=== PATIENT | female | born 1990 | race Caucasian/White ===

== ENCOUNTER 2020-07-07 07:12 | Inpatient (IN) | payer BC, OTHER ==
[~2020-07-07 07:12] MED LIST: Bupivacaine 0.25% 10 ML SDV ONE
[2020-07-07] MEDS ORDERED: Sodium Chloride 0.9% 10 ML Syringe FLUSH PRN (07:40)
[2020-07-07] MEDS ORDERED: Ondansetron 4 MG/2 ML SDV IVPUSH PRN (07:40)
[2020-07-07] MEDS ORDERED: Nalbuphine 10 MG/1 ML Vial IVPUSH PRN (07:40)
[2020-07-07] MEDS ORDERED: Oxytocin/Lactated Ringers 10 UNIT/1,000 ML BAG IV SCH ×2 (07:45)
[2020-07-07] MEDS ORDERED: Lactated Ringers 1,000 ML ONE (07:50)
[2020-07-07] MEDS ORDERED: Ammonia Inhalant Amp ONE ×2 (08:32→13:35)
[2020-07-07] MEDS: Lactated Ringers 1,000 ML IV SCH ×2 (08:50→13:43)
--- NOTE | 2020-07-07 09:22 | PCM.LDHP ---
L&D History of Present Illness - General Date of Service: 07/07/20 Admit Problem/Dx: Patient Status Order with Admit Dx/Problem 07/07/20 07:43 Patient Status [ADT] Routine Admission Diagnosis/Problem Admission Diagnosis/Problem 07/07/20 09:11 Alexandra is a 30-year-old 4 para 2-0-1-2 white female presently at 40-2/7 weeks gestational age with an TRAY of 07/12/2020 noted on the a.m. of 07/07/2020 for induction of labor. Source of Information: Patient History Limitations: Reports: No Limitations - History of Present Illness Introduction:: Alexandra is a 30-year-old 4 para 2-0-1-2 white female presently at 40-2/7 weeks gestational age with an TRAY of 07/12/2020 noted on the a.m. of 07/07/2020 for induction of labor. Duration clinic and again this a.m. her cervix is 1 to 2 cm, 80% effaced, -3 station, cephalic presentation, soft, mid position. Plan is for Pitocin induction of labor followed by AROM augmentation. The procedure, risk, benefits all discussed with patient she appears understand and wishes to proceed. 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 TRAY is 07/12/2020 as based upon a certain last menstrual period starting 10/06/2019 and supported by multiple ultrasounds during the course of the . Patient had menarche at approximately age 11. Cycles q. 30 days. Duration 5 days. LMP relatively certain on 10/06/2019. Patient denies any abnormal Pap smears and denies any STIs in the past. Past obstetrical history includes the followin. Spontaneous vaginal delivery 05/02/2009 at 38 weeks gestational age after 12 hours of labor. 7 pound 1 ounce male . Epidural used for analgesia. Child's name is Nikita. 2. Spontaneous in April 2015had D&C for retained products of conception 3. Spontaneous vaginal delivery on 05/01/2016 at 40 weeks gestational age. 8 pounds 0 ouncesfemale infantepidural used. Child's name is Mike. course: Alexandra was seen relatively early in the with first ultrasound being done at 11-4/7 weeks gestational age on 12/26/2019. She is seen on a regular basis throughout the . She had normal vital signs. Appropriate fundal height growth. Weight gain was from a pregravid weight of 183.4 pounds to a weight of 219 pounds. Group B strep negative. She desires epidural in labor. Has a history of labor with her first . [place] depression screen score 02/27/2020 was 0/30. Initially had a low-lying placenta. That resolved. She had some increased amniotic fluid in . She had a negative prequel noninvasive screen with negative results for trisomy 21, 18 and 13. [facility] was felt to be normal. labs: Blood is a positive with a negative antibody screen. First hemoglobin was 12.4 g/dL and platelets were 265,000. She is rubella immune. RPR is nonreactive. Urine culture was negative as was hepatitis B surface antigen and HIV assays. Chlamydia and gonorrhea assays were both negative. Second trimester labs showed a hemoglobin of 12.5 and platelets 239,000. 1 hour GTT was normal at 107. At 06/12/2020 her hemoglobin was 13.6 g/dL and platelets were 196,000. Group B strep screen was negative. Allergies: Seasonal allergies only Medications: 1. vitamins Past medical history: 1. x2 2. Spontaneous miscarriage with D&C for retained products of conception 3. History of anxiety not on any medications. 4. Infertility using Clomid to achieve second and third pregnancies. 5. History of labor with first Past surgical history: 1. Breast augmentation February 2019 2. D&C 2014 3. Tonsillectomy 1993 4. Oral surgery 2013 Family history: Mother is secondary to breast cancer. Father is alive and well. Maternal grandmother is alive and well. Maternal grandfather is secondary to Parkinson's disease. Paternal grandmother is secondary to lung cancerwas a smoker. Paternal grandfather is secondary to lung cancerwas a smoker. There is no family history of cancers otherwise, bleeding or blood clotting disorders, anesthesia related issues or related problems. Social history: Patient is . is Gibson. 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 She is a college graduate with graduate agree also. She does not use any significant also alcohol, drugs or tobacco. She lives in [place], [place]. Review of systems: In general patient has no complaints. Baby is active. Skin: Negative Lungs: No infectious symptoms or shortness of breath Cardiovascular: No chest pain or exercise intolerance Breasts: No lumps, changes in size, pain, dimpling, discharge or axillary or supraclavicular concerns. GI: Negative : Body habitus changes associated with . Musculoskeletal: Negative Neurological: Negative Physical exam: In general the patient is well-developed, well-nourished, pleasant female of stated age in no acute distress. On last evaluation clinic patient's blood pressure was 118/74. Weight was 219 pounds with a pregravid weight of 183.4 pounds. Pregravid body mass index was 24.4. Height is 5 feet 11 inches. heart rate was 145 bpm. Skin is warm dry without lesions. HEENT, neck and back within normal limits. Lungs are clear with good breath sounds in all lung marie. Cardiovascular exam shows regular and rhythm without murmurs. Breast exam done at the beginning of the /first visit was found to be normal. Patient has prosthesis bilaterally. She plans to breast- feed. Abdomen is gravid. Fundal height on last evaluation was 39 cm. Baby in vertex presentation by All maneuver. Genital per digital exam is as outlined above. Extremities and neurological exam are grossly within normal limits. - Related Data Allergies/Adverse Reactions: Allergies Allergy/AdvReac Type Severity Reaction Status Date / Time No Known Allergies Allergy Verified 07/07/20 07:23 Home Medications: Home Meds Acetaminophen/oxyCODONE [Percocet 325-5 MG] 2 tab PO Q4H PRN #20 tablet 05/03/16 [Rx] Ibuprofen [IJD: Ibuprofen] 600 mg PO Q4H PRN #30 tablet 05/03/16 [Rx] Past Medical History - Past Health History Medical/Surgical History: Denies Medical/Surgical History DIRECTOR OF GOLF History: Reports: Spontaneous Other OB/BYN History: SAB with D&C 2014 Psychiatric History: Reports: Anxiety - Past Surgical History HEENT Surgical History: Reports: Oral Surgery, Tonsillectomy, Other (See Below) Social & Family History - Family History Family Medical History: No Pertinent Family History - Caffeine Use Caffeine Use: Reports: None H&P Review of Systems - Review of Systems: Review Of Systems: See Below L&D Exam - Exam Exam: See Below - Vital Signs Weight: 100.244 kg - Patient Data Lab Results Last 24 hrs: Laboratory Results - last 24 hr 07/07/20 07/07/20 Range/Units 07:30 08:25 WBC 9.72 (3.98-10.04) K/mm3 RBC 4.43 (3.98-5.22) M/mm3 Hgb 13.1 (11.2-15.7) gm/dl Hct 37.6 (34.1-44.9) % MCV 84.9 (79.4-94.8) fl MCH 29.6 (25.6-32.2) pg MCHC 34.8 (32.2-35.5) g/dl RDW Std Deviation 41.4 (36.4-46.3) fL Plt Count 180 L (182-369) K/mm3 MPV 8.4 L (9.4-12.3) fl Neut % (Auto) 70.6 (34.0-71.1) % Lymph % (Auto) 20.7 (19.3-51.7) % [place] % (Auto) 8.3 (4.7-12.5) % Eos % (Auto) 0.2 L (0.7-5.8) Baso % (Auto) 0.2 (0.1-1.2) % Neut # (Auto) 6.86 H (1.56-6.13) K/mm3 Lymph # (Auto) 2.01 (1.18-3.74) K/mm3 [place] # (Auto) 0.81 H (0.24-0.36) K/mm3 Eos # (Auto) 0.02 L (0.04-0.36) K/mm3 Baso # (Auto) 0.02 (0.01-0.08) K/mm3 SARS-CoV-2 RNA (GALINDO) Negative (NEGATIVE) Result Diagrams: 07/07/20 08:25 Problem List Initiated/Reviewed/Updated: Yes Orders Last 24hrs: Active Orders 24 hr Category Date Time Status Patient Status [ADT] Routine ADT 07/07/20 07:43 Active Activity as Tolerated [RC] PFP Care 07/07/20 07:43 Active Communication Order [RC] ASDIRECTED Care 07/07/20 07:43 Active Heart Tones [RC] ASDIRECTED Care 07/07/20 07:43 Active Non Stress Test [RC] PER UNIT ROUTINE Care 07/07/20 07:43 Active Notify Provider [RC] PFP Care 07/07/20 07:43 Active Notify Provider [RC] PRN Care 07/07/20 07:43 Active Peripheral IV Care [RC] . DIRECTED Care 07/07/20 07:43 Active Pump Management, Intrathecal [RC] ASDIRECTED Care 07/07/20 07:44 Active Vital Signs [RC] PER UNIT ROUTINE Care 07/07/20 07:43 Active Regular Diet [DIET] Diet 07/07/20 Lunch Active RAPID PLASMA REAGIN,RPR [CHEM] Routine Lab 07/07/20 08:25 Received Lactated Ringers [Ringers, Lactated] 1,000 ml Med 07/07/20 07:45 Active IV ASDIRECTED Nalbuphine [Nubain] Med 07/07/20 07:40 Active 10 mg IVPUSH Q2H PRN Ondansetron [Zofran] Med 07/07/20 07:40 Active 4 mg IVPUSH Q4H PRN Oxytocin/Lactated Ringers [Pitocin in LR 10 Units/1,000 Med 07/07/20 07:45 Active ML] 10 unit in 1,000 ml IV .CONTINUOUS Oxytocin/Lactated Ringers [Pitocin in LR 10 Units/1,000 Med 07/07/20 07:45 Active ML] 10 unit in 1,000 ml IV TITRATE Sodium Chloride 0.9% [Saline Flush] Med 07/07/20 07:40 Active 10 ml FLUSH ASDIRECTED PRN Electronic Heart Tones Ext w TOCO [WOMSER] Oth 07/07/20 07:43 Ordered Routine Electronic Heart Tones Internal [WOMSER] Per Unit Oth 07/07/20 07:43 Ordered Routine Peripheral IV Insertion Adult [OM.PC] Routine Oth 07/07/20 07:43 Ordered Resuscitation Status Routine Resus Stat 07/07/20 07:40 Ordered Medication Orders Oxytocin/Lactated Ringer's (Pitocin In Lr 10 Units/1,000 Ml) 10 unit in 1,000 mls @ 500 mls/hr IV .CONTINUOUS CHRIS Oxytocin/Lactated Ringer's (Pitocin In Lr 10 Units/1,000 Ml) 10 unit in 1,000 mls @ 12 mls/hr IV TITRATE CHRIS; Protocol Last Admin: 07/07/20 08:50 Dose: 2 munits/min, 12 mls/hr Documented by: JAY Lactated Ringer's (Ringers, Lactated) 1,000 mls @ 100 mls/hr IV ASDIRECTED CHRIS Last Admin: 07/07/20 08:50 Dose: 100 mls/hr Documented by: JAY Nalbuphine HCl (Nubain) 10 mg IVPUSH Q2H PRN PRN Reason: Pain Ondansetron HCl (Zofran) 4 mg IVPUSH Q4H PRN PRN Reason: Nausea/Vomiting Sodium Chloride (Saline Flush) 10 ml FLUSH ASDIRECTED PRN PRN Reason: Keep Vein Open Assessment/Plan Comment:: 1. 39-2/7-week intrauterine admitted for induction of labor. 2. Risk factors: Minimal 3. History of mild hydramnios and earlier pregnancyPrequel noninvasive prenat al screen, MFM evaluation both unremarkable with findings felt to be. 4. Group B strep screen negative. 5. Patient desires epidural in labor and delivery 6. Patient is rubella immune. She has had her Tdap on 06/04/2020. Plan: 1. Pitocin induction of labor with AROM augmentation when possible. 2. May consider balloon catheter placement for cervical ripening when possible. 3. Epidural per patient desire 4. Support breast-feeding decision 5. Routine labor care 6. Initial laboratory evaluation upon admission: Covid19 testing, CBC/platelet count, RPR per protocol.
[2020-07-07] MEDS ORDERED: fentaNYL 100 MCG/2 ML SDV EPIDUR PRN (12:45)
[2020-07-07] MEDS ORDERED: Bupivacaine/fentaNYL/NS 100 ML Bag EPIDUR PRN (12:45)
[2020-07-07] MEDS ORDERED: ePHEDrine 50 MG/ML SDV IVPUSH PRN (12:45)
[2020-07-07] MEDS ORDERED: diphenhydrAMINE 50 MG/ML SDV IVPUSH PRN (12:45)
--- NOTE | 2020-07-07 12:45 | PCM.PREANE ---
Preanesthetic Assessment - Procedure Proposed Procedure: tracy - Anesthesia/Transfusion/Family Hx Anesthesia History: Prior Anesthesia Without Reaction Family History of Anesthesia Reaction: No Transfusion History: No Prior Transfusion(s) Type of Transfusion Reactions: Reports: Unknown - Review of Systems General: No Symptoms Pulmonary: No Symptoms Cardiovascular: No Symptoms Gastrointestinal: No Symptoms Neurological: No Symptoms Other: Reports: None - Physical Assessment Vital Signs: Last Vital Signs Temp 97.2 F 07/07/20 07:43 Pulse Resp 16 07/07/20 07:43 BP 106/59 L 07/07/20 07:43 Pulse Ox 99 07/07/20 07:43 Height: 5 ft 11 in Weight: 100.244 kg ASA Class: 2 Mental Status: Alert & Oriented x3 Airway Class: Mallampati = 1 Dentition: Reports: Normal Dentition Thyro-Mental Finger Breadths: 3 Mouth Opening Finger Breadths: 3 ROM/Head Extension: Full Lungs: Clear to Auscultation, Normal Respiratory Effort Cardiovascular: Regular Rate, Regular Rhythm - Lab Values: Laboratory Last Values WBC 9.72 K/mm3 (3.98-10.04) 07/07/20 08:25 RBC 4.43 M/mm3 (3.98-5.22) 07/07/20 08:25 Hgb 13.1 gm/dl (11.2-15.7) 07/07/20 08:25 Hct 37.6 % (34.1-44.9) 07/07/20 08:25 MCV 84.9 fl (79.4-94.8) 07/07/20 08:25 MCH 29.6 pg (25.6-32.2) 07/07/20 08:25 MCHC 34.8 g/dl (32.2-35.5) 07/07/20 08:25 RDW Std Deviation 41.4 fL (36.4-46.3) 07/07/20 08:25 Plt Count 180 K/mm3 (182-369) L 07/07/20 08:25 MPV 8.4 fl (9.4-12.3) L 07/07/20 08:25 Neut % (Auto) 70.6 % (34.0-71.1) 07/07/20 08:25 Lymph % (Auto) 20.7 % (19.3-51.7) 07/07/20 08:25 [place] % (Auto) 8.3 % (4.7-12.5) 07/07/20 08:25 Eos % (Auto) 0.2 (0.7-5.8) L 07/07/20 08:25 Baso % (Auto) 0.2 % (0.1-1.2) 07/07/20 08:25 Neut # (Auto) 6.86 K/mm3 (1.56-6.13) H 07/07/20 08:25 Lymph # (Auto) 2.01 K/mm3 (1.18-3.74) 07/07/20 08:25 [place] # (Auto) 0.81 K/mm3 (0.24-0.36) H 07/07/20 08:25 Eos # (Auto) 0.02 K/mm3 (0.04-0.36) L 07/07/20 08:25 Baso # (Auto) 0.02 K/mm3 (0.01-0.08) 07/07/20 08:25 SARS-CoV-2 RNA (GALINDO) Negative (NEGATIVE) 07/07/20 07:30 - Allergies Allergies/Adverse Reactions: Allergies Allergy/AdvReac Type Severity Reaction Status Date / Time No Known Allergies Allergy Verified 07/07/20 07:23 - Blood Blood Available: No - Acknowledgements Anesthesia Type Planned: Epidural Pt an Appropriate Candidate for the Planned Anesthesia: Yes Alternatives and Risks of Anesthesia Discussed w Pt/Guardian: Yes Pt/Guardian Understands and Agrees with Anesthesia Plan: Yes PreAnesthesia Questionnaire - Past Health History Medical/Surgical History: Denies Medical/Surgical History Cardiovascular History: Reports: None Respiratory History: Reports: None Gastrointestinal History: Reports: None 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: , 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 Other OB/BYN History: SAB with D&C 2014 Psychiatric History: Reports: Anxiety Oncologic (Cancer) History: Reports: None - Past Surgical History HEENT Surgical History: Reports: Oral Surgery, Tonsillectomy, Other (See Below) Oncologic Surgical History: Reports: Other (See Below) (implants breasts) - SUBSTANCE USE Tobacco Use Status *Q: Never Tobacco User Tobacco Use Within Last Twelve Months: No Second Hand Smoke Exposure: No Days Per Week of Alcohol Use: 0 Recreational Drug Use History: No - HOME MEDS Home Medications: Home Meds Pnv No.95/Ferrous Fum/Folic AC [ Caplet] 1 tab PO DAILY 07/07/20 [Histor y] - CURRENT (IN HOUSE) MEDS Current Meds: Current Medications Oxytocin/Lactated Ringer's (Pitocin In Lr 10 Units/1,000 Ml) 10 unit in 1,000 mls @ 500 mls/hr IV .CONTINUOUS CHRIS Oxytocin/Lactated Ringer's (Pitocin In Lr 10 Units/1,000 Ml) 10 unit in 1,000 mls @ 12 mls/hr IV TITRATE CHRIS; Protocol Last Titration: 07/07/20 11:30 Dose: 14 munits/min, 84 mls/hr Documented by: Lactated Ringer's (Ringers, Lactated) 1,000 mls @ 100 mls/hr IV ASDIRECTED CHRIS Last Admin: 07/07/20 08:50 Dose: 100 mls/hr Documented by: Nalbuphine HCl (Nubain) 10 mg IVPUSH Q2H PRN PRN Reason: Pain Ondansetron HCl (Zofran) 4 mg IVPUSH Q4H PRN PRN Reason: Nausea/Vomiting Sodium Chloride (Saline Flush) 10 ml FLUSH ASDIRECTED PRN PRN Reason: Keep Vein Open Discontinued Medications Ammonia (Aromatic Spirit) (Ammonia Aromatic Inhalant) Confirm Administered Dose 1 ampule .ROUTE .STK-MED ONE Stop: 07/07/20 08:33 Lactated Ringer's (Ringers, Lactated) Confirm Administered Dose 1,000 mls @ as directed .ROUTE .STK-MED ONE Stop: 07/07/20 07:51 Last Admin: 07/07/20 11:39 Dose: Not Given Documented by:
[2020-07-07] MEDS ORDERED: Ammonia Inhalant Amp INH PRN (15:49)
--- NOTE | 2020-07-07 17:39 | PCM.SN.2 ---
- Free Text/Narrative Note: Delivery note: Alexandra is a 30-year-old 4 para 2-0-1-2 white female presently at 40-2/7 weeks gestational age with an TRAY of 07/12/2020 noted on the a.m. of 07/07/2020 for induction of labor. She underwent Pitocin induction of labor. Progressed slowly in labor to approximately 2 to 3 cm x 1500 hours. At that time artificial rupture membranes was placed on IUPC was undertaken. She had an epidural placed prior to AROM with good results. She progressed rapidly to complete cervical dilation by approximately 1700 hrs. She began pushing and with 2 contractions delivered the baby. She delivered the baby in a direct occiput anterior position. The infant was a male infant, Apgars of 9 and 9 with a weight of 3800 g (8 pounds 6 ounces). He delivered over an intact perineum at 1713 hrs. on 07/07/2020. It was 22.0 inches. Immediately after delivery Pitocin was increased to 500 cc/h to facilitate increase in uterine tone and decrease likelihood of bleeding. The baby was placed on mom's abdomen and was dried in usual fashion. Nose and mouth were bulb suction. Cord was allowed to pulsate for approximately 3 minutes at which time was clamped x2 and cut by the baby's father Gibson. The umbilical cord had 3 vessels within it. Blood is obtained per routine. The placenta delivered at 1717 hrs. in a Orozco fashion. It appeared to be intact and complete and was discarded per patient desire. Evaluation of the vagina perineum showed no evidence of lacerations. Estimated blood loss was 200 cc. Patient plans to breast-feed. Condition: Good.
[2020-07-07] MEDS ORDERED: Witch Hazel Medicated Pads 40/Jar TOP PRN (18:49)
[2020-07-07] MEDS ORDERED: Acetaminophen 325 MG Tab PO PRN (18:49)
[2020-07-07] MEDS ORDERED: Docusate Sodium 100 MG Cap PO PRN (18:49)
[2020-07-07] MEDS ORDERED: Benzocaine/Menthol 20%-0.5% Spray 56 GM Canister TOP PRN (18:49)
[2020-07-07] MEDS: Ibuprofen 600 MG Tab PO PRN (19:50)
[2020-07-08] MEDS: Ibuprofen 600 MG Tab PO PRN ×4 (00:29→16:51)
--- NOTE | 2020-07-08 10:04 | PCM.DCSUM1 ---
Discharge Summary - Hospital Course Free Text/Narrative:: Alexandra is a 30-year-old 4 para 3-0-1-3 white female presently at 40-2/7 weeks gestational age with an TRAY of 07/12/2020 noted on the a.m. of 07/07/2020 for induction of labor. She underwent Pitocin induction of labor. Progressed slowly in labor to approximately 2 to 3 cm x 1500 hours. At that time artificial rupture membranes was placed on IUPC was undertaken. She had an epidural placed prior to AROM with good results. She progressed rapidly to complete cervical dilation by approximately 1700 hrs. She began pushing and with 2 contractions delivered the baby. She delivered the baby in a direct occiput anterior position. The infant was a male infant, Apgars of 9 and 9 with a weight of 3800 g (8 pounds 6 ounces). He delivered over an intact perineum at 1713 hrs. on 07/07/2020. It was 22.0 inches. Immediately after delivery Pitocin was increased to 500 cc/h to facilitate increase in uterine tone and decrease likelihood of bleeding. The baby was placed on mom's abdomen and was dried in usual fashion. Nose and mouth were bulb suction. Cord was allowed to pulsate for approximately 3 minutes at which time was clamped x2 and cut by the baby's father Gibson. The umbilical cord had 3 vessels within it. Blood is obtained per routine. The placenta delivered at 1717 hrs. in a Orozco fashion. It appeared to be intact and complete and was discarded per patient desire. Evaluation of the vagina perineum showed no evidence of lacerations. Estimated blood loss was 200 cc. Patient plans to breast-feed and this has been going well for her. she is voiding well. Ambulating without problems. She has minimal lochia. She is breast-feeding without concerns. She is desiring discharge home. Baby has been discharged. Condition: Good. Diagnosis: Stroke: No - Discharge Data Discharge Date: 07/08/20 Discharge Disposition: Home, Self-Care 01 Condition: Good - Referral to Home Health Primary Care Physician: Dillon Stewart MD - Patient Instructions Diet: Regular Diet as Tolerated (Nursing diet with increased calories and calcium as recommended) Activity: As Tolerated (No intercourse or tampons until bleeding resolves.) Driving: May Drive Today Showering/Bathing: May Shower Showering/Bathing, Other: May take a bath Notify Provider of: Fever, Increased Pain, Swelling and Redness, Nausea and/or Vomiting - Discharge Plan Home Medications: Home Meds Pnv No.95/Ferrous Fum/Folic AC [ Caplet] 1 tab PO DAILY 07/07/20 [History] Acetaminophen [Tylenol] 650 mg PO Q4H PRN tablet 07/08/20 [Rx] Docusate Sodium [Colace] 100 mg PO BID PRN cap 07/08/20 [Rx] Ibuprofen [Motrin] 600 mg PO Q4H PRN tablet 07/08/20 [Rx] guero Briscoe [Tucks] 1 pad TOP ASDIRECTED PRN pad 07/08/20 [Rx] Referrals: Dillon Stewart MD [Primary Care Provider] - (Return to clinicDr. Stewart[facility] weeks.) - Discharge Summary/Plan Comment DC Time >30 min.: No Discharge Summary/Plan Comment: Discharge instructions: 1. Discharge home 2. Diet, activity and follow-up discussed with patient. Recommend nursing diet with increased calories and calcium. 3. Precautions given concern increased pain, bleeding, temperature, signs/symptoms of DVT/PE. 4. Medications per home medication was printed, discussed with and given to the patient. 5. Return to clinic-Dr. Stewart[facility] in 2 weeks. Diagnosis: Term -delivered Condition: Good - Patient Data Vitals - Most Recent: Last Vital Signs Temp 36.7 C 07/08/20 04:00 Pulse 70 07/08/20 04:00 Resp 14 07/08/20 04:00 BP 116/76 07/08/20 04:02 Pulse Ox 99 07/07/20 07:43 Weight - Most Recent: 100.244 kg I&O - Last 24 hours: Intake & Output 07/07/20 07/08/20 07/08/20 22:59 06:59 14:59 Intake Total 3900 Balance 3900 Lab Results - Last 24 hrs: Laboratory Results - last 24 hr 07/07/20 Range/Units 08:25 RPR Non-reactive (NONREACTIVE) Med Orders - Current: Current Medications Acetaminophen (Tylenol) 650 mg PO Q4H PRN PRN Reason: mild pain or fever Last Admin: 07/08/20 04:03 Dose: 650 mg Documented by: Benzocaine/Menthol (Dermoplast Pain Relief [place]) 0 gm TOP ASDIRECTED PRN PRN Reason: Perineal Comfort Measure Last Admin: 07/07/20 19:49 Dose: 1 canister Documented by: Docusate Sodium (Colace) 100 mg PO BID PRN PRN Reason: Constipation Ibuprofen (Motrin) 600 mg PO Q4H PRN PRN Reason: Mild pain or fever Last Admin: 07/08/20 00:29 Dose: 600 mg Documented by: Guero Briscoe (Aditi) 1 pad TOP ASDIRECTED PRN PRN Reason: Perineal Comfort Measure Last Admin: 07/07/20 19:50 Dose: 1 tub Documented by: Discontinued Medications Ammonia (Aromatic Spirit) (Ammonia Aromatic Inhalant) Confirm Administered Dose 1 ampule .ROUTE .STK-MED ONE Stop: 07/07/20 08:33 Last Admin: 07/08/20 04:27 Dose: Not Given Documented by: Ammonia (Aromatic Spirit) (Ammonia Aromatic Inhalant) Confirm Administered Dose 1 ampule .ROUTE .STK-MED ONE Stop: 07/07/20 13:36 Ammonia (Aromatic Spirit) (Ammonia Aromatic Inhalant) 1 ampule INH .ASDIRECTED PRN PRN Reason: Other Last Admin: 07/07/20 08:07 Dose: 1 ampule Documented by: Bupivacaine HCl (Sensorcaine-Mpf 0.25%) 10 ml .ROUTE .STK-MED ONE Stop: 07/07/20 00:01 Diphenhydramine HCl (Benadryl) 25 mg IVPUSH Q6H PRN PRN Reason: pruritis Ephedrine Sulfate (Ephedrine Sulfate) 5 mg IVPUSH ASDIRECTED PRN PRN Reason: Hypotension Fentanyl (Sublimaze) 100 mcg EPIDUR Q3H PRN PRN Reason: Pain Last Admin: 07/07/20 13:36 Dose: 100 mcg Documented by: Fentanyl/Bupivacaine HCl (Fentanyl/Bupivacaine/Ns 2 Mcg-0.125% 100 Ml) 100 ml EPIDUR ASDIRECTED PRN PRN Reason: Pain Last Admin: 07/07/20 13:36 Dose: 100 ml Documented by: Oxytocin/Lactated Ringer's (Pitocin In Lr 10 Units/1,000 Ml) 10 unit in 1,000 mls @ 500 mls/hr IV .CONTINUOUS CHRIS Last Admin: 07/07/20 18:15 Dose: 500 mls/hr Documented by: Oxytocin/Lactated Ringer's (Pitocin In Lr 10 Units/1,000 Ml) 10 unit in 1,000 mls @ 12 mls/hr IV TITRATE CHRIS; Protocol Last Titration: 07/07/20 16:15 Dose: 6 munits/min, 36 mls/hr Documented by: Lactated Ringer's (Ringers, Lactated) 1,000 mls @ 100 mls/hr IV ASDIRECTED CHRIS Last Admin: 07/07/20 13:43 Dose: 100 mls/hr Documented by: Lactated Ringer's (Ringers, Lactated) Confirm Administered Dose 1,000 mls @ as directed .ROUTE .[facility]-MED ONE Stop: 07/07/20 07:51 Last Admin: 07/07/20 11:39 Dose: Not Given Documented by: Nalbuphine HCl (Nubain) 10 mg IVPUSH Q2H PRN PRN Reason: Pain Ondansetron HCl (Zofran) 4 mg IVPUSH Q4H PRN PRN Reason: Nausea/Vomiting Sodium Chloride (Saline Flush) 10 ml FLUSH ASDIRECTED PRN PRN Reason: Keep Vein Open
--- NOTE | 2020-07-08 14:35 | PCM48HPAN ---
Post Anesthesia Note - EVALUATION WITHIN 48HRS OF ANESTHETIC Vital Signs in Normal Range: Yes Patient Participated in Evaluation: Yes Respiratory Function Stable: Yes Airway Patent: Yes Cardiovascular Function Stable: Yes Hydration Status Stable: Yes Pain Control Satisfactory: Yes Nausea and Vomiting Control Satisfactory: Yes Mental Status Recovered: Yes Vital Signs: Last Vital Signs Temp 36.8 C 07/08/20 09:30 Pulse 69 07/08/20 09:45 Resp 16 07/08/20 09:45 BP 116/76 07/08/20 09:30 Pulse Ox 95 07/08/20 09:45
[2020-07-08 16:55] VITALS: BP 119/62; PULSE 72
== END 2020-07-08 18:15 | disposition home or self-care (01) | DRG 560 ==
LOC: JD.OB 07:12 → OBSVTOIN 17:13 → JD.OB 17:14
PROVIDERS: ADMIT Obstetrics & Gynecology; ATTEND Obstetrics & Gynecology
PROC: 3E033VJ Introduction of Other Hormone into Peripheral Vein, Percutaneous Approach (ICD-10-PCS; principal; 2020-07-07)
PROC: 10H07YZ Insertion of Other Device into Products of Conception, Via Natural or Artificial Opening (ICD-10-PCS; 2020-07-07)
PROC: 10907ZC Drainage of Amniotic Fluid, Therapeutic from Products of Conception, Via Natural or Artificial Opening (ICD-10-PCS; 2020-07-07)
PROC: 10E0XZZ Delivery of Products of Conception, External Approach (ICD-10-PCS; 2020-07-07)
PROC: 3E0R3BZ Introduction of Anesthetic Agent into Spinal Canal, Percutaneous Approach (ICD-10-PCS; 2020-07-07)
DX: O48.0 Post-term pregnancy (principal); Z3A.40 40 weeks gestation of pregnancy; Z37.0 Single live birth; Z20.828 Contact with and (suspected) exposure to other viral communicable diseases
CPT/HCPCS: 01967; 36415; 51702; 59025; 59409; 85025; 86592; A9270-GY; J2590; J3010; J3490; J7120; U0002

== ENCOUNTER → 2025-01-03 | Day surgery (SDC) | payer OTHER ==
[~2025-01-03] MED LIST changes: +Acetaminophen Soln 650 MG/20.3 ML UD Cup PO ONE; -Bupivacaine 0.25% 10 ML SDV ONE; +Dexamethasone 4 MG/ML 5 ML MDV ONE; +EPINEPHrine 1 MG/ML SDV ONE; +Glycopyrrolate 0.2 MG/ML 2 ML SDV ONE; +HYDROmorphone 0.5 MG/0.5 ML Syringe IVPUSH PRN; +Ketorolac 30 MG/ML SDV ONE; +Lactated Ringers 1,000 ML ONE; +Midazolam 1 MG/ML 2 ML SDV ONE; +Ondansetron 4 MG/2 ML SDV IVPUSH PRN; +Ondansetron 4 MG/2 ML SDV ONE; +Rocuronium 50 MG/5 ML Vial ONE; +Sodium Chloride 0.9% 10 ML Syringe FLUSH PRN; +Sodium Chloride 0.9% 10 ML Syringe FLUSH SCH; +Sugammadex Sodium 200 MG/2 ML VIAL IV ONE; +ceFAZolin 2 GM Vial ONE; +dexmedeTOMIDine HCl 200 MCG/2 ML SDV ONE; +ePHEDrine 50 MG/ML SDV ONE; +fentaNYL 250 MCG/5 ML SDV ONE; +propofoL 1,000 MG/100 ML 100 ML ONE
[2025-01-03] MEDS: Lactated Ringers 1,000 ML IV SCH (08:35)
[2025-01-03] MEDS: Bupivacaine 0.5% 30 ML SDV ONE (09:58)
[2025-01-03] MEDS: Lidocaine 1% 20 ML MDV ONE (10:18)
[2025-01-03] MEDS: fentaNYL 100 MCG/2 ML SDV IVPUSH PRN (11:02)
[2025-01-03 11:54] VITALS: BP 105/61; PULSE 71
[2025-01-03] MEDS: ALPRAZolam 0.5 MG Tab PO ONE (12:15)
[2025-01-03] MEDS: oxyCODONE 5 MG Tab PO ONE (12:40)
== END | disposition home or self-care (01) ==
LOC: JD.SDS 08:14
PROVIDERS: ATTEND Surgery
DX: K42.9 Umbilical hernia without obstruction or gangrene (principal); D22.39 Melanocytic nevi of other parts of face
CPT/HCPCS: 11440; 49591; A9270; J0171; J0665; J0690; J1100; J1596; J1885; J2250; J2405; J2704; J3010; J7120; 00840; J3490